=== PATIENT | female | born 1985 | race Caucasian/White ===

== ENCOUNTER 2018-11-12 05:54 | Inpatient (IN) ==
[2018-11-12] MEDS ORDERED: FAMOTIDINE 20 MG/2 ML VIAL IV ONE (06:03)
[2018-11-12] MEDS ORDERED: CITRIC ACID/SODIUM CITRATE 30 ML UDCUP PO ONE (06:03)
[2018-11-12] MEDS ORDERED: ceFAZolin 3,000 MG in SYRINGE 1 EACH IV ONE (06:03)
[2018-11-12] MEDS ORDERED: OXYTOCIN/LR 20 UNIT/1,000 ML BAG IV ONE ×2 (06:05→09:08)
[2018-11-12 06:22] LABS: Basophils # 0.1 10*3/uL (0.0-0.2); Basophils % 0.5 % (0.0-0.8); Eosinophils # 0.2 10*3/uL (0.0-0.87); Eosinophils % 1.5 % (0.00-10.9); Hematocrit 38.7 VOL% (35.7-47.0); Hemoglobin 12.9 GM/DL (12.0-16.0); Immature Granulocytes % 0.5 %; Immature Granulocytes Absolute 0.06 #; Lymphocytes # 2.6 10*3/uL (1.4-4.0); Lymphocytes % 23.5 % (21.3-54.2); Mean Corpuscular HGB Conc 33.3 GM/DL (32-36); Mean Corpuscular Volume 94.2 FL (87-102); Mean Platelet Volume 10.9 FL (9.6-12.0); Monocytes % 4.7 % (1.7-12.7); Neutrophils % 69.3 % (38.7-73.9); Platelet Count 227 T/CUMM (130-400); Red Blood Count 4.11 MC/CUMM (3.8-5.5); Red Cell Distribution Width 14.3 % (9.3-17.3); White Blood Count 11.1 T/CUMM (4-12)
[2018-11-12 06:41] LABS: Alanine Aminotransferase 27 U/L (13-56); Albumin 2.6 G/DL (3.4-5.0); Alkaline Phosphatase 226 U/L (45-117); Aspartate Amino Transferase 21 U/L (0-37); Bilirubin,Total < 0.39 MG/DL (0.2-1.0); Blood Urea Nitrogen 11 MG/DL (7-18); Calcium 9.1 MG/DL (8.5-10.1); Glucose 77 MG/DL (74-106); Osmolality,Calculated 270.8 MOS/KG (273-304); Total Protein 6.7 G/DL (6.4-8.3)
[2018-11-12] MEDS: LACTATED RINGERS 1,000 ML IV SCH ×2 (06:45→20:39)
[2018-11-12] MEDS ORDERED: PHENYLEPHRINE 1 MG/10 ML SYRINGE IV ONE ×2 (06:47→09:30)
[2018-11-12] MEDS ORDERED: KETOROLAC 60 MG/2 ML VIAL IM ONE (06:48)
[2018-11-12] MEDS ORDERED: ONDANSETRON 4 MG/2 ML VIAL ONE (06:48)
[2018-11-12] MEDS ORDERED: BUPIVACAINE 0.5% 50 ML VIAL ONE (06:48)
[2018-11-12] MEDS ORDERED: MORPHINE 10 MG/10 ML VIAL ONE (06:48)
[2018-11-12] MEDS ORDERED: EPINEPHrine 1 MG/ML VIAL ONE (06:48)
[2018-11-12] MEDS ORDERED: BUPIVACAINE SPINAL 0.75% 2 ML AMP SPINAL ONE (06:48)
[2018-11-12] MEDS ORDERED: DEXAMETHASONE 4 MG/1 ML VIAL ONE (06:48)
[2018-11-12] MEDS ORDERED: fentaNYL 100 MCG/2 ML VIAL ONE (06:48)
[2018-11-12] MEDS ORDERED: TRANEXAMIC ACID 1,000 MG/10 ML VIAL ONE (07:22)
[2018-11-12] MEDS ORDERED: METHYLERGONOVINE 0.2 MG/1 ML AMP ONE (07:22)
[2018-11-12] MEDS ORDERED: CARBOPROST TROMETHAMINE 250 MCG/ML AMP IM ONE (07:23)
[2018-11-12] MEDS ORDERED: miSOPROStol 200 MCG TABLET ONE (07:23)
[2018-11-12 08:42] LABS: Apearance,Urine CLEAR (Clear); Bilirubin,Urine Negative (Negative); Blood, Urine Negative (Negative); Glucose,Urine (UA) Negative (Negative); Ketones,Urine Negative (Negative); Mucus,Urine Occasional /LPF (Occasional); Nitrite,Urine Negative (Negative); Protein,Urine Negative; Squamous Epithelial Cell,Urine Occasional /HPF (0-10); Urine Color Yellow (Yellow); Urine Specific Gravity 1.015 (1.001-1.035); Urine Urobilinogen < 2.0 EU/DL (0.2-1.0)
[2018-11-12] MEDS ORDERED: IBUPROFEN 800 MG TABLET PO PRN (09:08)
[2018-11-12] MEDS ORDERED: MAGNESIUM HYDROXIDE SUSP 30 ML UDCUP PO PRN (09:08)
[2018-11-12] MEDS ORDERED: SIMETHICONE CHEW 80 MG TABLET PO PRN (09:08)
[2018-11-12] MEDS ORDERED: ACETAMINOPHEN 325 MG TABLET PO PRN (09:08)
[2018-11-12] MEDS ORDERED: ONDANSETRON 4 MG/2 ML VIAL IV PRN (09:08)
[2018-11-12] MEDS ORDERED: HYDROmorphone 2 MG/1 ML VIAL IV PRN (09:27)
[2018-11-12] MEDS ORDERED: hydrOXYzine HCL 25 MG/1 ML VIAL IM PRN (09:27)
[2018-11-12] MEDS ORDERED: diphenhydrAMINE 50 MG/1 ML VIAL IV PRN (09:27)
[2018-11-12] MEDS ORDERED: LACTATED RINGERS 1,000 ML IV SCH (09:30)
[2018-11-12] MEDS ORDERED: RHO(D) IMMUNE GLOBULIN 300 MCG SYRINGE IM ONE (10:00)
[2018-11-12] MEDS: ceFAZolin 1,000 MG in SYRINGE 1 EACH IV SCH ×2 (14:47→23:33)
[2018-11-12] MEDS ORDERED: KETOROLAC 30 MG/1 ML VIAL IV SCH (15:30)
[2018-11-12 16:14] LABS: Basophils # 0.1 10*3/uL (0.0-0.2); Basophils % 0.3 % (0.0-0.8); Eosinophils % 0.1 % (0.00-10.9); Hematocrit 35.4 VOL% (35.7-47.0); Hemoglobin 11.7 GM/DL (12.0-16.0); Immature Granulocytes % 0.7 %; Immature Granulocytes Absolute 0.13 #; Lymphocytes # 1.1 10*3/uL (1.4-4.0); Lymphocytes % 5.9 % (21.3-54.2); Mean Corpuscular HGB Conc 33.1 GM/DL (32-36); Mean Corpuscular Volume 95.4 FL (87-102); Mean Platelet Volume 10.9 FL (9.6-12.0); Monocytes % 2.9 % (1.7-12.7); Neutrophils % 90.1 % (38.7-73.9); Platelet Count 216 T/CUMM (130-400); Red Blood Count 3.71 MC/CUMM (3.8-5.5); Red Cell Distribution Width 14.3 % (9.3-17.3); White Blood Count 19.2 T/CUMM (4-12)
[2018-11-12] MEDS: DOCUSATE SODIUM 100 MG CAPSULE PO SCH (20:41)
[2018-11-13] MEDS ORDERED: KETOROLAC 30 MG/1 ML VIAL IV SCH (03:00)
[2018-11-13 05:03] LABS: Basophils # 0.1 10*3/uL (0.0-0.2); Basophils % 0.3 % (0.0-0.8); Eosinophils # 0.2 10*3/uL (0.0-0.87); Hemoglobin 10.5 GM/DL (12.0-16.0); Immature Granulocytes % 0.6 %; Immature Granulocytes Absolute 0.09 #; Lymphocytes # 3.4 10*3/uL (1.4-4.0); Lymphocytes % 22.9 % (21.3-54.2); Mean Corpuscular HGB Conc 31.8 GM/DL (32-36); Mean Corpuscular Volume 97.9 FL (87-102); Mean Platelet Volume 11.5 FL (9.6-12.0); Monocytes % 6.9 % (1.7-12.7); Neutrophils % 68.3 % (38.7-73.9); Red Blood Count 3.37 MC/CUMM (3.8-5.5); Red Cell Distribution Width 14.4 % (9.3-17.3); White Blood Count 14.7 T/CUMM (4-12)
[2018-11-13 05:08] LABS: Platelet Count 147 T/CUMM (130-400)
[2018-11-13] MEDS ORDERED: MULTIVITAMIN (PRENATAL) TABLET PO SCH (09:00)
[2018-11-13] MEDS: DOCUSATE SODIUM 100 MG CAPSULE PO SCH (09:11)
[2018-11-13] MEDS: oxyCODONE/ACETAMINOPHEN 5-325 MG TABLET PO PRN ×2 (11:33→17:18)
[2018-11-13 15:50] VITALS: BP 117/62
== END 2018-11-13 20:33 | disposition home or self-care (01) | DRG 788 ==
LOC: N.LD 05:54 → N.OB 12:54
PROVIDERS: ADMIT Obstetrics & Gynecology; ATTEND Obstetrics & Gynecology
PROC: LDCSECT (ICD-10-PCS; 2018-11-12 07:45)

== ENCOUNTER 2019-12-07 07:25 | Inpatient (IN) ==
[2019-12-07] MEDS ORDERED: FAMOTIDINE 20 MG/2 ML VIAL IV ONE (07:56)
[2019-12-07] MEDS ORDERED: CITRIC ACID/SODIUM CITRATE 30 ML UDCUP PO ONE (07:56)
[2019-12-07] MEDS ORDERED: ceFAZolin 2,000 MG in PREMIX 1 EACH IV ONE (07:56)
[2019-12-07] MEDS ORDERED: OXYTOCIN/LR 20 UNIT/1,000 ML BAG IV ONE ×2 (07:58→10:18)
[2019-12-07] MEDS ORDERED: LACTATED RINGERS 1,000 ML IV ONE (07:58)
[2019-12-07] MEDS ORDERED: LACTATED RINGERS 1,000 ML IV SCH ×2 (08:00→10:30)
[2019-12-07 08:25] LABS: Basophils # 0.1 10*3/uL (0.0-0.2); Basophils % 0.6 % (0.0-0.8); Eosinophils # 0.3 10*3/uL (0.0-0.87); Eosinophils % 2.3 % (0.00-10.9); Hematocrit 37.8 VOL% (35.7-47.0); Hemoglobin 12.5 GM/DL (12.0-16.0); Immature Granulocytes % 0.7 %; Lymphocytes # 3.1 10*3/uL (1.4-4.0); Lymphocytes % 21.7 % (21.3-54.2); Mean Corpuscular HGB Conc 33.1 GM/DL (32-36); Mean Corpuscular Volume 96.2 FL (87-102); Mean Platelet Volume 10.4 FL (9.6-12.0); Monocytes % 5.5 % (1.7-12.7); Neutrophils % 69.2 % (38.7-73.9); Platelet Count 266 T/CUMM (130-400); Red Blood Count 3.93 MC/CUMM (3.8-5.5); Red Cell Distribution Width 13.6 % (9.3-17.3); White Blood Count 14.2 T/CUMM (4-12)
[2019-12-07 08:50] LABS: Albumin 2.7 G/DL (3.4-5.0); Bilirubin,Total 1.3 MG/DL (0.2-1.0); Osmolality,Calculated 270.8 MOS/KG (273-304); Total Protein 6.7 G/DL (6.4-8.3)
[2019-12-07] MEDS ORDERED: ROPIVACAINE 0.5% 30 ML VIAL ONE (09:28)
[2019-12-07 10:17] LABS: Cord Arterial Blood HCO3 20.4 MMOL/L
[2019-12-07 10:18] LABS: Cord Venous Blood HCO3 22.2 MMOL/L; Cord Venous Blood PCO2 41.9 MMHG; Cord Venous Blood PO2 30.4 MMHG
[2019-12-07] MEDS ORDERED: ACETAMINOPHEN 325 MG TABLET PO PRN (10:18)
[2019-12-07] MEDS ORDERED: RHO(D) IMMUNE GLOBULIN 300 MCG SYRINGE IM ONE (10:18)
[2019-12-07] MEDS ORDERED: SIMETHICONE CHEW 80 MG TABLET PO PRN (10:18)
[2019-12-07] MEDS ORDERED: IBUPROFEN 800 MG TABLET PO PRN (10:18)
[2019-12-07] MEDS ORDERED: ONDANSETRON 4 MG/2 ML VIAL IV PRN (10:18)
[2019-12-07 10:42] LABS: Apearance,Urine CLEAR (Clear); Bacteria,Urine Occasional /HPF (Few); Bilirubin,Urine Negative (Negative); Blood, Urine Negative (Negative); Glucose,Urine (UA) Negative (Negative); Ketones,Urine Negative (Negative); Nitrite,Urine Negative (Negative); Protein,Urine Negative; RBC,Urine <1 /HPF (0-4); Squamous Epithelial Cell,Urine Occasional /HPF (0-10); Urine Color Straw (Yellow); Urine Specific Gravity 1.011 (1.001-1.035); Urine Urobilinogen < 2.0 EU/DL (0.2-1.0); WBC,Urine <1 /HPF (0-6)
[2019-12-07] MEDS ORDERED: MORPHINE 10 MG/10 ML VIAL ONE (11:31)
[2019-12-07] MEDS ORDERED: ONDANSETRON 4 MG/2 ML VIAL ONE (11:31)
[2019-12-07] MEDS ORDERED: PHENYLEPHRINE 1 MG/10 ML SYRINGE IV ONE (11:32)
[2019-12-07] MEDS: oxyCODONE/ACETAMINOPHEN 5-325 MG TABLET PO PRN ×2 (12:37→22:42)
[2019-12-07] MEDS ORDERED: SODIUM CHLORIDE 0.9% 100 ML IV ONE (17:23)
[2019-12-07] MEDS: ceFAZolin 1,000 MG in SYRINGE 1 EACH IV SCH (17:30)
[2019-12-07 18:58] LABS: Basophils # 0.1 10*3/uL (0.0-0.2); Basophils % 0.3 % (0.0-0.8); Eosinophils % 0.2 % (0.00-10.9); Hematocrit 34.1 VOL% (35.7-47.0); Hemoglobin 11.6 GM/DL (12.0-16.0); Immature Granulocytes % 0.5 %; Immature Granulocytes Absolute 0.08 #; Lymphocytes # 1.4 10*3/uL (1.4-4.0); Lymphocytes % 8.2 % (21.3-54.2); Mean Corpuscular Volume 93.9 FL (87-102); Mean Platelet Volume 10.2 FL (9.6-12.0); Monocytes % 2.5 % (1.7-12.7); Neutrophils % 88.3 % (38.7-73.9); Platelet Count 234 T/CUMM (130-400); Red Blood Count 3.63 MC/CUMM (3.8-5.5); Red Cell Distribution Width 13.6 % (9.3-17.3); White Blood Count 17.1 T/CUMM (4-12)
[2019-12-07] MEDS: DOCUSATE SODIUM 100 MG CAPSULE PO SCH (22:41)
[2019-12-08] MEDS ORDERED: SODIUM CHLORIDE 0.9% 100 ML IV ONE (00:13)
[2019-12-08] MEDS: ceFAZolin 1,000 MG in SYRINGE 1 EACH IV SCH (00:26)
[2019-12-08 05:27] LABS: Basophils # 0.1 10*3/uL (0.0-0.2); Basophils % 0.4 % (0.0-0.8); Eosinophils # 0.2 10*3/uL (0.0-0.87); Hematocrit 31.5 VOL% (35.7-47.0); Hemoglobin 10.4 GM/DL (12.0-16.0); Immature Granulocytes % 0.5 %; Immature Granulocytes Absolute 0.08 #; Lymphocytes # 3.3 10*3/uL (1.4-4.0); Lymphocytes % 21.4 % (21.3-54.2); Mean Corpuscular Volume 95.5 FL (87-102); Mean Platelet Volume 10.8 FL (9.6-12.0); Monocytes % 3.9 % (1.7-12.7); Neutrophils % 72.8 % (38.7-73.9); Platelet Count 219 T/CUMM (130-400); Red Cell Distribution Width 13.5 % (9.3-17.3); White Blood Count 15.4 T/CUMM (4-12)
[2019-12-08] MEDS: oxyCODONE/ACETAMINOPHEN 5-325 MG TABLET PO PRN ×4 (06:12→23:49)
[2019-12-08] MEDS: KETOROLAC 15 MG/1 ML VIAL IV SCH ×2 (09:53→18:20)
[2019-12-08] MEDS: DOCUSATE SODIUM 100 MG CAPSULE PO SCH ×2 (09:53→21:05)
[2019-12-08] MEDS: MULTIVITAMIN (PRENATAL) TABLET PO SCH (09:53)
[2019-12-08] MEDS: MAGNESIUM HYDROXIDE SUSP 30 ML UDCUP PO PRN ×2 (09:53→21:05)
[2019-12-09] MEDS: KETOROLAC 15 MG/1 ML VIAL IV SCH ×2 (02:42→10:31)
[2019-12-09] MEDS: oxyCODONE/ACETAMINOPHEN 5-325 MG TABLET PO PRN (06:25)
[2019-12-09] MEDS ORDERED: BISACODYL 10 MG SUPP RECTAL ONE (08:39)
[2019-12-09 09:57] VITALS: BP 110/90
[2019-12-09] MEDS: DOCUSATE SODIUM 100 MG CAPSULE PO SCH (10:21)
[2019-12-09] MEDS: MULTIVITAMIN (PRENATAL) TABLET PO SCH (10:21)
== END 2019-12-09 13:35 | disposition home or self-care (01) | DRG 540 ==
LOC: N.LD 07:25 → N.OB 14:08
PROVIDERS: ADMIT Obstetrics & Gynecology; ATTEND Obstetrics & Gynecology